=== PATIENT | male | born 1990 ===

== ENCOUNTER 2017-04-04 16:45 | Emergency (ER) | payer OTHER, MEDICAID ==
[2017-04-04 16:50] VITALS: BP 128/64; PULSE 69; RESP 18; TEMP 98.2; O2SAT 99
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
== END 2017-04-04 18:29 | disposition home or self-care (01) ==
LOC: H.ER 16:45
DX: M54.5 Low back pain (principal); S80.11XA Contusion of right lower leg, initial encounter; V03.10XA Pedestrian on foot injured in collision with car, pick-up truck or van in traffic accident, initial encounter; Y92.410 Unspecified street and highway as the place of occurrence of the external cause; E78.5 Hyperlipidemia, unspecified; I10 Essential (primary) hypertension; J45.909 Unspecified asthma, uncomplicated
CPT/HCPCS: 72100; 73590; 96372; 99282; J1885

== ENCOUNTER 2018-09-22 08:53 | Emergency (ER) | payer MEDICAID, OTHER ==
[2018-09-22 09:15] VITALS: TEMP 98.4; O2SAT 97
--- NOTE | 2018-09-22 10:30 | ED PDOC ---
HPI: Back Time Seen by Provider: 09/22/18 09:25 Chief Complaint (Nursing): Back Pain Chief Complaint (Provider): Back Pain History Per: Patient History/Exam Limitations: no limitations Onset/Duration Of Symptoms: Days (4-5 ) Current Symptoms Are (Timing): Still Present Quality Of Discomfort: "Pain" Additional Complaint(s): 27 year old male presents to the ED with back pain and left thumb pain for the last 5 days. Patient reports he dropped a couch on his thumb months ago and experienced difficulty moving finger since. He visited [facility] in [place] for a x-ray and was never given results by his pcp Dr khan. 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 Now, he sleeps on the floor at his mother's place which has made it worse. hedenies chest pain, shortness of breath, or any other symptoms. Denies weakness, numbness in any extremity. PMD: Dr. Khan Past Medical History Reviewed: Historical Data, Nursing Documentation, Vital Signs Vital Signs: Last Vital Signs Temp 98.4 F 09/22/18 09:12 Pulse 82 09/22/18 09:12 Resp 18 09/22/18 09:12 BP 119/68 09/22/18 09:12 Pulse Ox 97 09/22/18 09:12 - Medical History PMH: Asthma, HTN, Hyperlipidemia Denies: Diabetes, Hepatitis, HIV, Seizures, Sexually Transmitted Disease - Surgical History Surgical History: No Surg Hx - Family History Family History: States: Unknown Family Hx - Social History Current smoker - smoking cessation education provided: Yes (3-4 cigarettes a day) Drugs: Denies - Immunization History Hx Tetanus Toxoid Vaccination: No Hx Influenza Vaccination: No Hx Pneumococcal Vaccination: No - Home Medications Home Medications: Ambulatory Orders Medication Instructions Recorded Pantoprazole Sodium [Protonix] 40 mg PO DAILY #30 ect 06/03/17 Ibuprofen [Motrin] 600 mg PO Q6H PRN #20 tab 09/22/18 - Allergies Allergies/Adverse Reactions: Allergies Allergy/AdvReac Type Severity Reaction Status Date / Time No Known Allergies Allergy Verified 09/22/18 09:15 Review of Systems ROS Statement: Except As Marked, All Systems Reviewed And Found Negative Constitutional: Negative for: Weakness Musculoskeletal: Positive for: Back Pain (mid spine ) Physical Exam - Reviewed Nursing Documentation Reviewed: Yes Vital Signs Reviewed: Yes - Physical Exam Appears: Positive for: Non-toxic, No Acute Distress Head Exam: Positive for: ATRAUMATIC, NORMAL INSPECTION, NORMOCEPHALIC Skin: Positive for: Normal Color, Warm, Dry Eye Exam: Positive for: EOMI, Normal appearance, PERRL ENT: Positive for: Normal ENT Inspection Neck: Positive for: Normal, Painless ROM, Supple Cardiovascular/Chest: Positive for: Regular Rate, Rhythm. Negative for: Murmur Respiratory: Positive for: Normal Breath Sounds. Negative for: Respiratory Distress Gastrointestinal/Abdominal: Positive for: Normal Exam, Soft. Negative for: Tenderness Back: Positive for: Other (mild mid thoracic left paraspinal tenderness). Negative for: L CVA Tenderness, R CVA Tenderness, Muscle Spasm Extremity: Positive for: Normal ROM (upper and lower extremities). Negative for: Deformity, Swelling Neurologic/Psych: Positive for: Alert, bobbin stripper II-XII, Oriented (x 3), Gait (stable). Negative for: Motor/Sensory Deficits - ECG O2 Sat by Pulse Oximetry: 97 (RA) Pulse Ox Interpretation: Normal Medical Decision Making Medical Decision Makin:48 BACK PAIN, THUMB PAIN, RULE OUT FRACTURE --Flexeril 10 mg PO --Motrin 600 mg PO --Left hand x-ray --Thoracic x-ray 09:58 --Patient is refusing Motrin and Flexeril. states wants something stronger. 10:11 --Percocet 1 tab PO 11:16 Thoracic x-ray FINDINGS: BONES: Alignment maintained. No fracture. DISC SPACES: Normal. SOFT TISSUES: Normal. OTHER FINDINGS: None. IMPRESSION: Normal radiographs of the thoracic spine. Left hand x-ray FINDINGS: LEFT THUMB: Normal left thumb, without fracture or focal lesion. Remainder of the left hand (as seen on the AP view) grossly unremarkable. JOINTS: Normal. SOFT TISSUES: Normal. OTHER FINDINGS: None. IMPRESSION: Normal left thumb radiographs. 11:50 pt sleeping when i went to evaluate him. --Patient had negative x-rays and is aware of results. He is stable and will be discharged. Return precautions provided. Follow with PMD in 1-2 days as well as hand orthopedist (referral given) for further eval if pain persists. Scribe Attestation: Documented by Maria De Jesus Pope acting as a scribe for Len Mike MD Provider Scribe Attestation: All medical record entries made by the Scribe were at my direction and personally dictated by me. I have reviewed the chart and agree that the record accurately reflects my personal performance of the history, physical exam, medical decision making, and the department course for this patient. I have also personally directed, reviewed, and agree with the discharge instructions and disposition. Disposition - Clinical Impression Clinical Impression: Back strain - Patient ED Disposition Is Patient to be Admitted: No Counseled Patient/Family Regarding: Studies Performed, Diagnosis, Need For Followup - Disposition Referrals: Eleno Chu MD [Medical Doctor] - Disposition: Routine/Home Disposition Time: 11:40 Condition: IMPROVED Additional Instructions: follow up with your doctor, Dr Khan for further evaluation of back pain in 1-2 days follow up with orthopedic hand doctor if pain in hand persists return to the ED with any worsening or concerning symptoms Prescriptions: Ibuprofen [Motrin] 600 mg PO Q6H PRN #20 tab PRN Reason: Pain, Moderate (4-7) Instructions: Muscle Strain Forms: [employer] (Swedish)
[2018-09-22] MEDS ORDERED: Oxycodone/Acetaminophen 5/325 mg Tab ONE (10:32)
[2018-09-22] MEDS: Oxycodone/Acetaminophen 5/325 mg Tab PO ONE (10:33)
--- NOTE | 2018-09-22 11:18 | RAD ---
Date of service: 09/22/2018 PROCEDURE: Left Thumb radiographs. HISTORY: pain sp injury COMPARISON: None. TECHNIQUE: AP radiograph of the left hand, as well as spot oblique and lateral images of thumb were obtained. FINDINGS: LEFT THUMB: Normal left thumb, without fracture or focal lesion. Remainder of the left hand (as seen on the AP view) grossly unremarkable. JOINTS: Normal. SOFT TISSUES: Normal. OTHER FINDINGS: None. IMPRESSION: Normal left thumb radiographs.
--- NOTE | 2018-09-22 11:18 | RAD ---
Date of service: 09/22/2018 HISTORY: pain COMPARISON: No prior. FINDINGS: BONES: Alignment maintained. No fracture. DISC SPACES: Normal. SOFT TISSUES: Normal. OTHER FINDINGS: None. IMPRESSION: Normal radiographs of the thoracic spine.
[2018-09-22 12:01] VITALS: BP 121/69; PULSE 72; RESP 19
== END 2018-09-22 12:01 | disposition home or self-care (01) ==
LOC: H.ER 08:53
DX: S39.012A Strain of muscle, fascia and tendon of lower back, initial encounter (principal); M79.645 Pain in left finger(s); X58.XXXA Exposure to other specified factors, initial encounter; Y92.89 Other specified places as the place of occurrence of the external cause; E78.5 Hyperlipidemia, unspecified; F17.210 Nicotine dependence, cigarettes, uncomplicated; I10 Essential (primary) hypertension

== ENCOUNTER 2018-12-18 03:49 | Emergency (ER) | payer MEDICAID ==
[2018-12-18 04:00] VITALS: BP 122/74; PULSE 81; RESP 16; TEMP 98.2; O2SAT 97
--- NOTE | 2018-12-18 04:40 | ED PDOC ---
HPI: Psych/Substance Abuse Time Seen by Provider: 12/18/18 04:13 Chief Complaint (Nursing): Substance Abuse Chief Complaint (Provider): Substance Abuse History Per: Patient History/Exam Limitations: no limitations Current Symptoms Are (Timing): Still Present Additional Complaint(s): 28 year old male presents to the ED via EMS for evaluation of substance abuse. Patient reports that earlier today he "touched fentanyl," but has no current complaints. PMD: none provided Past Medical History Reviewed: Historical Data, Nursing Documentation, Vital Signs Vital Signs: Last Vital Signs Temp 98.2 F 12/18/18 03:55 Pulse 81 12/18/18 03:55 Resp 16 12/18/18 03:55 BP 122/74 12/18/18 03:55 Pulse Ox 97 12/18/18 03:55 - Medical History PMH: Asthma, HTN, Hyperlipidemia Denies: Diabetes, Hepatitis, HIV, Seizures, Sexually Transmitted Disease - Surgical History Surgical History: No Surg Hx - Family History Family History: States: Unknown Family Hx - Social History Current smoker - smoking cessation education provided: No Alcohol: None Drugs: Opiates - Immunization History Hx Tetanus Toxoid Vaccination: No Hx Influenza Vaccination: No Hx Pneumococcal Vaccination: No - Home Medications Home Medications: Ambulatory Orders Medication Instructions Recorded Pantoprazole Sodium [Protonix] 40 mg PO DAILY #30 ect 06/03/17 Ibuprofen [Motrin] 600 mg PO Q6H PRN #20 tab 09/22/18 - Allergies Allergies/Adverse Reactions: Allergies Allergy/AdvReac Type Severity Reaction Status Date / Time No Known Allergies Allergy Verified 12/18/18 03:55 Review of Systems ROS Statement: Except As Marked, All Systems Reviewed And Found Negative Physical Exam - Reviewed Nursing Documentation Reviewed: Yes Vital Signs Reviewed: Yes - Physical Exam Appears: Positive for: No Acute Distress Head Exam: Positive for: ATRAUMATIC, NORMAL INSPECTION, NORMOCEPHALIC Skin: Positive for: Normal Color, Warm Eye Exam: Positive for: Other (pupils 3mm bilaterally) ENT: Positive for: Normal ENT Inspection Neck: Positive for: Normal, Painless ROM, Supple Cardiovascular/Chest: Positive for: Regular Rate, Rhythm Respiratory: Positive for: Normal Breath Sounds. Negative for: Respiratory Distress Gastrointestinal/Abdominal: Positive for: Normal Exam, Soft. Negative for: Tenderness Back: Positive for: Normal Inspection Extremity: Positive for: Normal ROM (all extermities) Lymphatic: Positive for: Adenopathy Neurologic/Psych: Positive for: Alert, Oriented (x3), Gait (steady), Other (speech slow) - Laboratory Results Result Diagrams: 12/18/18 04:30 12/18/18 04:30 - ECG O2 Sat by Pulse Oximetry: 97 (RA) Pulse Ox Interpretation: Normal Medical Decision Making Medical Decision Making: Time: 412 Initial Impression: 28 year old male with opiate abuse but no evidence of acute overdose Initial Plan: --EKG --Alcohol serum --CMP --Drug screen --CBC with differential --Accucheck --Reevaluation 06 Patient clinically sober in ED with steady gait and clear speech. Stable for d/c home. Scribe Attestation: Documented by Vero Ruiz, acting as a scribe for Segundo Pham MD. Provider Scribe Attestation: All medical record entries made by the Scribe were at my direction and personal ly dictated by me. I have reviewed the chart and agree that the record accurately reflects my personal performance of the history, physical exam, medical decision making, and the department course for this patient. I have also personally directed, reviewed, and agree with the discharge instructions and disposition. Disposition - Clinical Impression Clinical Impression: Substance abuse - Disposition Disposition: Routine/Home Disposition Time: 06:34 Condition: STABLE Instructions: Opioid Use Disorder Forms: [employer] (French)
[2018-12-18 04:45] LABS: BASO # 0.1 K/uL (0.0-0.2); BASO % 0.9 % (0.0-2.0); EOS # 0.4 K/uL (0.0-0.7); EOS % 4.3 % (0.0-4.0); HEMOGLOBIN 14.5 g/dL (12.0-18.0); LYMPH # 2.6 K/uL (1.0-4.3); LYMPH % 27.9 % (20.0-40.0); MEAN CELL VOLUME 87.8 fl (80.0-94.0); MEAN CORPUSCULAR HEMOGLOBIN 29.8 pg (27.0-31.0); MEAN PLATELET VOLUME 8.6 fl (7.2-11.7); MONO % 10.9 % (0.0-10.0); NEUT # 5.2 K/uL (1.8-7.0); NRBC % 0.1 % (0.0-0.0); RBC 4.85 Mil/uL (4.40-5.90); RED CELL DISTRIBUTION WIDTH 13.1 % (11.5-14.5); WHITE BLOOD COUNT 9.3 K/uL (4.8-10.8)
[2018-12-18 04:54] LABS: ALB/GLOB RATIO 1.5 (1.0-2.1); ALBUMIN 4.1 g/dL (3.5-5.0); ALT/SGPT 44 U/L (21-72); AST/SGOT 22 U/L (17-59); BLOOD UREA NITROGEN 22 mg/dl (9-20); CALCIUM 9.1 mg/dL (8.4-10.2); GFR NON-AFRICAN AMERICAN > 60
== END 2018-12-18 06:40 | disposition home or self-care (01) ==
LOC: H.ER 03:49
DX: F19.10 Other psychoactive substance abuse, uncomplicated (principal); F11.10 Opioid abuse, uncomplicated; I10 Essential (primary) hypertension; J45.909 Unspecified asthma, uncomplicated

== ENCOUNTER 2019-03-21 22:05 | Emergency (ER) | payer MEDICAID, OTHER ==
[2019-03-21 22:07] VITALS: BP 118/73; PULSE 61; RESP 16; TEMP 98.8; O2SAT 100
--- NOTE | 2019-03-21 23:21 | ED PDOC ---
HPI: Psych/Substance Abuse Time Seen by Provider: 03/21/19 22:25 Chief Complaint (Nursing): Medical Clearance Chief Complaint (Provider): clearance for incarceration Additional Complaint(s): 28 y/o M with hx of bipolar disorder, HTN, HL, anxiety and depression who was br ought in by Luis MUÑOZ for medical and psychiatric clearance for incarceration. Pt states that he takes Xanax daily by crushing and snorting it. He has not seen mental health provider in 8 months. Also smokes marijuana but denies cocaine/heroine/other drug abuse. Currently he is without physical complaints and denies alcohol use today. Denies C/P, palpitations, SOB, dizziness or HARRIS. Further denies SI/HI, auditory or visual hallucinations. Past Medical History Reviewed: Historical Data, Nursing Documentation, Vital Signs Vital Signs: Last Vital Signs Temp 98.8 F 03/21/19 22:06 Pulse 61 03/21/19 22:06 Resp 16 03/21/19 22:06 BP 118/73 03/21/19 22:06 Pulse Ox 100 03/21/19 22:06 Primary Care Provider: Shakir Joshi - Medical History PMH: Anemia, Asthma, Bipolar Disorder, Depression, HTN, Hyperlipidemia Denies: Diabetes, Hepatitis, HIV, Seizures, Sexually Transmitted Disease - Family History Family History: States: Unknown Family Hx - Immunization History Hx Tetanus Toxoid Vaccination: No Hx Influenza Vaccination: No Hx Pneumococcal Vaccination: No - Home Medications Home Medications: Ambulatory Orders Medication Instructions Recorded No Known Home Med 12/24/18 - Allergies Allergies/Adverse Reactions: Allergies Allergy/AdvReac Type Severity Reaction Status Date / Time No Known Allergies Allergy Verified 12/18/18 03:55 Review of Systems Cardiovascular: Negative for: Chest Pain Respiratory: Negative for: Shortness of Breath Neurological: Negative for: Weakness, Confusion, Altered Mental Status, Headache Psych: Negative for: Suicidal ideation Physical Exam - Reviewed Nursing Documentation Reviewed: Yes Vital Signs Reviewed: Yes - Physical Exam Appears: Positive for: Well Head Exam: Positive for: ATRAUMATIC Skin: Positive for: Normal Color Eye Exam: Positive for: PERRL (dilated B/L) Cardiovascular/Chest: Positive for: Regular Rate, Rhythm Respiratory: Positive for: Normal Breath Sounds Neurological/Psych: Positive for: Awake, Alert, Oriented, Mood/Affect (miky ropriate), glass tinter II-XII (smile is symmetrical, symmetric eyebrow raise). Negative for: Lethargic, Motor/Sensory Deficits, Facial Droop - ECG O2 Sat by Pulse Oximetry: 100 Medical Decision Making Medical Decision Making: Crisis evaluation Patient seen by spice room worker, stable for incarceration from psychiatric standpoint as per Dr. Pickett Disposition - Clinical Impression Clinical Impression: Medical clearance for incarceration - Patient ED Disposition Is Patient to be Admitted: No - Disposition Disposition: Discharged/Transfer to Law Enforcement Disposition Time: 00:30 Condition: STABLE Instructions: General (DC) Forms: [facility] (Spanish)
== END 2019-03-22 01:22 ==
LOC: H.ER 22:05
DX: F12.90 Cannabis use, unspecified, uncomplicated (principal); F31.9 Bipolar disorder, unspecified; E78.5 Hyperlipidemia, unspecified; I10 Essential (primary) hypertension; J45.909 Unspecified asthma, uncomplicated